=== PATIENT | male | born 1990 | race Caucasian/White ===

== ENCOUNTER 2023-03-26 07:01 | Outpatient (CLI) | payer OTHER, SELFPAY ==
--- NOTE | 2023-03-26 07:15 | MR_ITS ---
[facility] [address] [facility] [address] Phone:?[phone] Fax:?[phone] Referring Physician Information: Pepper Franco [address] [facility] [address] Phone:?[phone] Fax:?[phone] Patient:Chauncey Camejo D.O.B:?1990 Sex:?Male Phone:?[phone] [facility] MRN:?[id number] Exam Date:?03/26/2023 EXAM: MRI of the LEFT KNEE, without contrast CLINICAL: Left knee pain. Evaluate for meniscal tear. COMPARISONS: X-rays dated 03/14/2023. TECHNICAL: Multiplanar multisequence MRI of the left knee was obtained. SEDATION: None. CONTRAST: None. FINDINGS: Ligaments: ACL: Intact and unremarkable. PCL: Intact and unremarkable. MCL: Intact and unremarkable. LCL: Intact and unremarkable. Posterolateral corner: Popliteus, biceps femoris, iliotibial band, and the popliteofibular ligament appear intact. Posteromedial corner: Semimembranosus, pes anserine tendons and posterior oblique ligament appear intact. Extensor mechanism: Patellar tendon: Intact, without tendinopathy. Quadriceps tendon: Intact, without tendinopathy. Retinacula: Medial and lateral retinacula are intact. Fat pads: Unremarkable infrapatellar Hoffa's, quadriceps and prefemoral fat pads. Patellofemoral joint: Patella: No significant chondromalacia. Trochlea: No significant chondromalacia. Medial compartment: Medial meniscus: No evidence of discrete meniscal tear or meniscal displacement. Medial cartilage: No significant chondromalacia. Lateral compartment: Lateral meniscus: No evidence of discrete meniscal tear or meniscal displacement. Lateral cartilage: No significant chondromalacia. Knee joint: Effusion: Moderate left knee effusion. Intra-articular bodies:?No convincing bodies identified. Popliteal cyst: None. Bones: No suspicious bone marrow signal alteration or fracture line. There is anterior knee subcutaneous soft tissue edema, nonspecific. Vascular varicosities are also seen within the anterior knee subcutaneous soft tissues. IMPRESSION: 1. No evidence of meniscal tear, ligamentous injury, fracture or chondral defect. 2. Moderate joint effusion. 3. Anterior knee subcutaneous soft tissue edema, nonspecific. Vascular varicosities are also present within the anterior knee subcutaneous soft tissues. JCZ Electronically signed on 03/26/2023 9:27:00 AM by Jaime Yi D.O.
== END 2023-03-26 07:02 | disposition home or self-care (01) ==
LOC: MRI 07:02
PROVIDERS: PCP Nurse Practitioner Family; Visit Provider Nurse Practitioner Family
DX: M25.562 Pain in left knee (principal); M25.462 Effusion, left knee
CPT/HCPCS: 73721

== ENCOUNTER 2023-11-07 07:56 | Outpatient (CLI) | payer MEDICAID, SELFPAY | END 2023-11-07 07:57 | disposition home or self-care (01) | LOC: NFLDREF 11-12 08:45 | PROVIDERS: PCP Nurse Practitioner Family; Referring Provider Nurse Practitioner Family; Visit Provider Nurse Practitioner Family | DX: Z13.228 Encounter for screening for other metabolic disorders (principal); Z13.220 Encounter for screening for lipoid disorders | CPT/HCPCS: 80053; 80061 ==

== ENCOUNTER 2023-11-26 19:37 | Outpatient (CLI) | payer OTHER, SELFPAY ==
--- NOTE | 2023-12-16 12:46 | W.PM.SLEEP ---
Sleep Study Details Details Interpreting Provider: Bello Date of Sleep Study: 11/26/23 Sleep Study Details: STUDY TYPE:? Home unattended ? BMI:? 47.5 ORDERING PROVIDER:Kenneth Yee INDICATION:? Concern about sleep apnea ? SLEEP SUMMARY:? 404.2 minutes monitored RESPIRATORY SUMMARY:? AHI 96 Low oxygen 80 24% of study oxygen below 90% Snoring 73.1% PERIODIC LIMB MOVEMENTS OF SLEEP:? Not record CARDIAC:? Range 44-125, mean 55.8 IMPRESSION:? Severe obstructive sleep apnea with significant hypo oxygenation RECOMMENDATION: Would favor an in-lab titration.
== END 2023-11-26 19:38 | disposition home or self-care (01) ==
LOC: SLEEP 19:39
PROVIDERS: PCP Nurse Practitioner Family; Visit Provider Nurse Practitioner Family
DX: G47.33 Obstructive sleep apnea (adult) (pediatric) (principal)
CPT/HCPCS: 95806